=== PATIENT | male | born 1990 | race Caucasian/White ===

== ENCOUNTER 2022-03-04 17:48 | Emergency (ER) | payer OTHER ==
[2022-03-04 18:23] VITALS: TEMP 98.1
[2022-03-04] MEDS ORDERED: HYDROmorphone 1 MG/ML 1 ML SYRINGE IVP STA (18:30)
--- NOTE | 2022-03-04 19:10 | XR ---
EXAMINATION TYPE: XR shoulder complete LT DATE OF EXAM: 03/04/2022 COMPARISON: NONE HISTORY: Pain TECHNIQUE: 3 views FINDINGS: There is anterior dislocation of the glenohumeral joint. No fracture seen. AC joint is inta ct. IMPRESSION: Anterior dislocation of the glenohumeral joint. No fracture.
--- NOTE | 2022-03-04 19:19 | ED ---
Upper Extremity HPI - General Chief Complaint: Extremity Injury, Upper Stated Complaint: Pain to left shoulder from fall Time Seen by Provider: 03/04/22 18:29 Source: patient, EMS Mode of arrival: EMS Limitations: physical limitation - History of Present Illness Initial Comments: Patient is a 31-year-old healthy male who presents the emergency room after playing in a bounce house and jumped landing on his arm when he heard a pop and lost range of motion in his arm with severe pain afterwards. He continues to remain in severe pain despite getting 200 g of fentanyl by EMS and be placed in a sling. He denies any other significant past medical history. MD Complaint: Injury to:: left -: hour(s) Other Extremity Injury: Shoulder: Left Handedness: right Place: outdoors Severity scale (1-10): 10 Improves With: none Worsens With: immobilization Context: fall, direct blow Associated Symptoms: heard/felt popping sensat Treatments Prior to Arrival: other (sling and fentanyl by EMS) - Related Data Allergies Allergy/AdvReac Type Severity Reaction Status Date / Time No Known Allergies Allergy Verified 03/04/22 18:23 Review of Systems ROS Statement: Those systems with pertinent positive or pertinent negative responses have been documented in the HPI. ROS Other: All systems not noted in ROS Statement are negative. Past Medical History Past Medical History: No Reported History History of Any Multi-Drug Resistant Organisms: None Reported Additional Past Surgical History / Comment(s): Tubes in ears Past Psychological History: No Psychological Hx Reported Smoking Status: Vaper Past Alcohol Use History: Occasional Past Drug Use History: Marijuana General Exam Limitations: physical limitation General appearance: alert, in no apparent distress Head exam: Present: atraumatic, normocephalic, normal inspection Eye exam: Present: normal appearance, PERRL, EOMI. Absent: scleral icterus, conjunctival injection, periorbital swelling ENT exam: Present: normal exam, mucous membranes moist Neck exam: Present: normal inspection. Absent: tenderness, meningismus, lymphadenopathy Respiratory exam: Absent: respiratory distress, accessory muscle use Extremities exam: Absent: pedal edema, joint swelling Left Shoulder Exam: Present: tenderness, dislocation. Absent: full ROM, swelling Back exam: Present: normal inspection Neurological exam: Present: alert, oriented X3, CN II-XII intact Psychiatric exam: Present: normal affect, normal mood Skin exam: Present: warm, dry, intact, normal color. Absent: rash Course Vital Signs 03/04/22 03/04/22 03/04/22 18:18 20:00 20:06 Temperature 98.1 F Pulse Rate 88 83 76 Respiratory 18 16 12 Rate Blood Pressure 148/91 136/83 136/83 O2 Sat by Pulse 97 98 99 Oximetry 03/04/22 03/04/22 03/04/22 20:10 20:15 20:20 Temperature Pulse Rate 95 94 89 Respiratory 10 L 10 L 18 Rate Blood Pressure 131/83 131/86 124/76 O2 Sat by Pulse 99 98 98 Oximetry 03/04/22 03/04/22 03/04/22 20:30 20:45 21:00 Temperature Pulse Rate 72 67 67 Respiratory 15 10 L 18 Rate Blood Pressure 132/86 134/89 131/80 O2 Sat by Pulse 96 98 98 Oximetry Procedures - Orthopedic Joint Reduction Joint #1 Consent Obtained: written consent Side: left Joint Reduction Location: shoulder Analgesia: procedural sedation Shoulder Technique Used (if applicable): traction/counter-traction Post-Reduction Neuro Exam: intact Post-Reduction Vascular Exam: intact Post Reduction X-Ray Obtained: Yes Post Reduction X-Ray Results: reduced Splint Applied: Yes Patient Tolerated Procedure: well Additional Comments: Completed with Dr. Benavides Medical Decision Making - Medical Decision Making Likely shoulder dislocation will check x-ray to evaluate place. Along with rule out fracture. Will give additional pain medication of IV Dilaudid. Pain persists despite IV Dilaudid and fentanyl from EMS. X-ray consistent with dislocation no fracture. Attempted manual reduction without sedation and unable to reduce dislocation. Discussed reduction with sedation. Case discussed with Dr. Benavides. Awaiting consent signature along with respiratory for sedation to reduce dislocation. Sedation with Dr. Benavides via propofol provided manual reduction of left shoulder dislocation completed with repeat x-ray showing good anatomical Position of left shoulder, tolerated well. Arm placed back in sling. Increased pain after procedure IV Toradol given with improved symptoms. Will give starter pack of Tylenol to utilize as needed for pain upon discharge. Patient not from the area advised to follow-up with a local orthopedist when he returns home. Advised to maintain sitting sling use for 7 days and avoid range of motion to his occupation he will not be able to return to work for 7 days or longer pending orthopedic follow-up. - Radiology Data Radiology results: report reviewed, image reviewed Shoulder left x-ray shows anterior dislocation with no fracture. Repeat views left shoulder x-ray shows anatomical alignment of left shoulder after reduction. Disposition Clinical Impression: Dislocation of shoulder region Disposition: HOME SELF-CARE Condition: Good Instructions (If sedation given, give patient instructions): Shoulder Di slocation (ED), Moderate Sedation (ED) Additional Instructions: Please continue to utilize sling for the next week. Avoid full range of motion first early 7-10 days. Please follow-up with your primary care provider and orthopedist in your area. Tylenol or ibuprofen can be utilize for pain. He received intravenous sedation today. Please do not make any decisions for the next 24 hours. Please return to the Emergency Department if symptoms worsen or any other concerns. Is patient prescribed a controlled substance at d/c from ED?: No Referrals: Nonstaff,Physician [REFERRING] - 1-2 days (Please also follow-up with an orthopedists in your region soon.) Time of Disposition: 21:18
[2022-03-04] MEDS ORDERED: PROPOFOL 10 MG/ML 20 ML VIAL IV ONE ×2 (19:38→20:16)
--- NOTE | 2022-03-04 20:56 | XR ---
EXAMINATION TYPE: XR shoulder limited LT DATE OF EXAM: 03/04/2022 COMPARISON: Today HISTORY: Postreduction TECHNIQUE: FINDINGS: Single view shows anatomic reduction of the glenohumeral joint. No fracture seen. IMPRESSION: Anatomic reduction.
[2022-03-04] MEDS ORDERED: KETOROLAC 15 MG/ML 1 ML VIAL IVP STA (20:57)
[2022-03-04] MEDS ORDERED: ACET/COD 300 MG/30 MG STARTER PACK 6 TAB BTL PO STA (20:57)
[2022-03-04 21:22] VITALS: BP 147/79; PULSE 70; RESP 9
== END 2022-03-04 21:22 | disposition home or self-care (01) ==
LOC: EC 17:48
DX: S43.015A Anterior dislocation of left humerus, initial encounter (principal); W17.89XA Other fall from one level to another, initial encounter; Y93.39 Activity, other involving climbing, rappelling and jumping off; Y92.89 Other specified places as the place of occurrence of the external cause
CPT/HCPCS: 73030; 73020; 99284; 23650; 96374; 96375; J1170; J1885; J2704